=== PATIENT | female | born 1990 | race American Indian/Alaskan Native ===

== ENCOUNTER 2019-12-02 16:29 | Emergency (ER) | payer SELFPAY ==
[2019-12-02 16:43] VITALS: BP 118/76
--- NOTE | 2019-12-02 18:34 | Event Note ---
ED Screening Note Date of service: 12/02/19 Time: 18:32 ED Screening Note: 29-year-old female presents with continuous intermittent nausea vomiting x2 days patient states that she has lots of alcohol on Saturday symptoms began the next day This initial assessment/diagnostic orders/clinical plan/treatment(s) is/are subject to change based on patients health status, clinical progression and re- assessment by fellow clinical providers in the ED. Further treatment and workup at subsequent clinical providers discretion. Patient/guardian urged not to elope from the ED as their condition may be serious if not clinically assessed and managed. Initial orders include: Labs ordered
[2019-12-02 19:14] LABS: Basophils # (Auto) 0.1 K/mm3 (0.0-0.1); Basophils % (Auto) 0.8 % (0.0-1.8); Eosinophils % (Auto) 0.1 % (0.0-4.3); Hematocrit 41.6 % (30.3-42.9); Lymphocytes # (Auto) 1.7 K/mm3 (1.2-5.4); Lymphocytes % (Auto) 23.4 % (13.4-35.0); Mean Corpuscular HGB Conc 34 % (30-34); Mean Corpuscular Volume 83 fl (79-97); Monocytes # (Auto) 0.5 K/mm3 (0.0-0.8); Monocytes % (Auto) 6.5 % (0.0-7.3); Platelet Count 283 K/mm3 (140-440); Red Blood Count 5.01 M/mm3 (3.65-5.03); Red Cell Distribution Width 13.7 % (13.2-15.2)
[2019-12-02 19:17] LABS: Alanine Aminotransferase 15 units/L (7-56); Albumin 4.3 g/dL (3.9-5); Blood Urea Nitrogen 9 mg/dL (7-17); Calcium 9.8 mg/dL (8.4-10.2); Hemolysis Index 15
[2019-12-02 19:21] LABS: BUN/Creatinine Ratio 13
[2019-12-02] MEDS ORDERED: DICYCLOMINE 20 MG TAB PO ONE (19:43)
[2019-12-02] MEDS ORDERED: ONDANSETRON 4 MG/2 ML INJ IV ONE (19:43)
[2019-12-02] MEDS ORDERED: FAMOTIDINE 20 MG/2 ML INJ IV ONE (19:43)
[2019-12-02] MEDS ORDERED: SODIUM CHLORIDE 0.9% 1000 ML 1,000 ML IV ONE (19:43)
[2019-12-02 20:02] LABS: Bacteria,Urine 1+ /HPF (Negative); Bilirubin,Urine NEG (Negative); Blood,Urine NEG (Negative); Color,Urine Yellow (Yellow); Mucus,Urine FEW /HPF; Protein,Urine <15 mg/dL mg/dL (Negative); Urobilinogen,Urine < 2.0 mg/dL (<2.0)
--- NOTE | 2019-12-02 23:01 | Emergency Department Report ---
ED N/V/D HPI - General Chief complaint: Nausea/Vomiting/Diarrhea Stated complaint: PANIC ATTACK Source: patient Mode of arrival: Ambulatory Limitations: No Limitations - History of Present Illness Initial comments: Patient is a nulliparous 29-year-old -[place] female with no past medical history and who presents to the ED with complaint of acute onset persistent intractable nausea and vomiting with epigastric pain for the last 2 days after heavy alcohol abuse and smoking marijuana. Patient states that she has had in the family and 2 days ago with the burial of her grandmother who had a week ago, and as a result she became stressed out and decided to drink heavy alcohol with her family members. Patient states that she was heavily intoxicated and thereafter started having intractable nausea and vomiting which has been persistent for the last 2 days intermittently. Patient states that she has not been able to keep anything down because of nausea and vomiting. Patient denies dizziness, syncope, chest pain, shortness of breath, diarrhea, dysuria, urinary frequency and urgency, fever, chills, cough, sore throat, headache, back pain, vaginal bleeding, vaginal discharge or cough. MD complaint: nausea, vomiting, abdominal pain -: Sudden, days(s) (2) Description of Vomiting: food contents, watery Associated Abdominal Pain: Yes (epigastric pain) Location: epigastric Radiation: none Severity: moderate Pain Scale: 5 Quality: cramping, aching Consistency: constant Improves with: none Worsens with: vomiting Context: possible food poisoning, alcohol abuse Associated Symptoms: denies other symptoms. denies: myalgias, chest pain, cough, diaphoresis, fever/chills, headaches, loss of appetite, malaise, nausea/vomiting, shortness of breath, syncope, other - Related Data Previous Rx's Medication Instructions Recorded Last Taken Type Dicyclomine [Bentyl] 20 mg PO Q6H PRN #30 tablet 12/02/19 Unknown Rx Famotidine [Pepcid] 20 mg PO Q12H #30 tablet 12/02/19 Unknown Rx Ondansetron [Zofran Odt] 4 mg PO Q6HR PRN #20 tab.rapdis 12/02/19 Unknown Rx Allergies Allergy/AdvReac Type Severity Reaction Status Date / Time No Known Allergies Allergy Unverified 12/02/19 16:41 ED Review of Systems ROS: Stated complaint: PANIC ATTACK Other details as noted in HPI Constitutional: denies: chills, fever Eyes: denies: eye pain, eye discharge, vision change ENT: denies: ear pain, throat pain Respiratory: denies: cough, shortness of breath, wheezing Cardiovascular: denies: chest pain, palpitations Endocrine: no symptoms reported Gastrointestinal: abdominal pain, nausea, vomiting. denies: diarrhea Genitourinary: denies: urgency, dysuria, discharge Musculoskeletal: denies: back pain, joint swelling, arthralgia Skin: denies: rash, lesions Neurological: denies: headache, weakness, paresthesias Psychiatric: denies: anxiety, depression Hematological/Lymphatic: denies: easy bleeding, easy bruising ED Past Medical Hx - Past Medical History Previous Medical History?: No - Surgical History Past Surgical History?: No - Social History Smoking Status: Never Smoker Substance Use Type: None - Medications Home Medications: Home Medications Medication Instructions Recorded Confirmed Last Taken Type Dicyclomine [Bentyl] 20 mg PO Q6H PRN #30 tablet 12/02/19 Unknown Rx Famotidine [Pepcid] 20 mg PO Q12H #30 tablet 12/02/19 Unknown Rx Ondansetron [Zofran Odt] 4 mg PO Q6HR PRN #20 tab.rapdis 12/02/19 Unknown Rx ED Physical Exam - General Limitations: No Limitations General appearance: alert, in no apparent distress - Head Head exam: Present: atraumatic, normocephalic, normal inspection - Eye Eye exam: Present: normal appearance, PERRL, EOMI Pupils: Present: normal accommodation - ENT ENT exam: Present: normal exam, normal orophraynx, mucous membranes moist, TM's normal bilaterally, normal external ear exam - Neck Neck exam: Present: normal inspection, full ROM - Respiratory Respiratory exam: Present: normal lung sounds bilaterally. Absent: respiratory distress, wheezes, rales, stridor, chest wall tenderness, accessory muscle use, prolonged expiratory - Cardiovascular Cardiovascular Exam: Present: regular rate, normal rhythm, normal heart sounds. Absent: systolic murmur, diastolic murmur, rubs, gallop - GI/Abdominal GI/Abdominal exam: Present: soft, tenderness (Palpable mild epigastric tenderness), normal bowel sounds. Absent: guarding, rebound, hyperactive bowel sounds, hypoactive bowel sounds, organomegaly, mass - Extremities Exam Extremities exam: Present: normal inspection, full ROM, normal capillary refill - Back Exam Back exam: Present: normal inspection, full ROM. Absent: tenderness, CVA tenderness (R), muscle spasm, paraspinal tenderness, vertebral tenderness - Neurological Exam Neurological exam: Present: alert, oriented X3, CN II-XII intact, normal gait, reflexes normal - Psychiatric Psychiatric exam: Present: normal affect, normal mood - Skin Skin exam: Present: warm, dry, intact, normal color. Absent: rash ED Course Vital Signs 12/02/19 12/02/19 16:42 18:32 Temperature 98.0 F 98 F Pulse Rate 65 65 Respiratory 22 18 Rate Blood Pressure 118/76 Blood Pressure 118/76 [Right] O2 Sat by Pulse 100 100 Oximetry ED Medical Decision Making - Lab Data Result diagrams: 12/02/19 18:41 12/02/19 18:41 - Medical Decision Making This is a nulliparous 29-year-old -[place] female with no past medical history and who presents to the ED with complaint of acute onset persistent intractable nausea and vomiting with epigastric pain for the last 2 days after heavy alcohol abuse and smoking marijuana. Patient states that she has had in the family and 2 days ago with the burial of her grandmother who had di ed a week ago, and as a result she became stressed out and decided to drink heavy alcohol with her family members. Patient states that she was heavily intoxicated and thereafter started having intractable nausea and vomiting which has been persistent for the last 2 days intermittently. Patient states that she has not been able to keep anything down because of nausea and vomiting. In the ED, patient is alert and oriented x3 and is not in distress. Patient was treated in the ED for nausea and vomiting, also given pain medications and antacids. Lab test results were reviewed and are all nonactionable including urinalysis. On reevaluation, patient nausea and vomiting resolved, patient epig astric pain also resolved. Patient was able to keep oral fluids in the ED with no nausea or vomiting. Patient was discharged home on medications including antacids, antiemetics and pain medication and was advised to follow-up with her primary care physician in 5 to 7 days for reevaluation. Patient was otherwise advised to maintain a clear liquid diet for 12 to 24 hours prior to resuming her normal meals. Patient was otherwise advised return to the ED immediately if symptoms get worse. - Differential Diagnosis GERD; Gastritis; Gastroenteritis; Gallstones Critical care attestation.: If time is entered above; I have spent that time in minutes in the direct care of this critically ill patient, excluding procedure time. ED Disposition Clinical Impression: Acute alcoholic gastritis without hemorrhage, Nausea and vomiting in adult patient, GERD without esophagitis Disposition: TO HOME OR SELFCARE Is pt being admited?: No Does the pt Need Aspirin: No Condition: Stable Instructions: Gastroesophageal Reflux Disease (ED), Gastritis (ED), Acute Nausea and Vomiting (ED) Additional Instructions: Maintain a clear liquid diet for 12 to 24 hours, take medication as advised and follow-up with your primary care physician in 5 to 7 days for reevaluation. Return to the ED immediately if symptoms get worse. Prescriptions: Dicyclomine [Bentyl] 20 mg PO Q6H PRN #30 tablet PRN Reason: Abdominal pain Famotidine [Pepcid] 20 mg PO Q12H #30 tablet Ondansetron [Zofran Odt] 4 mg PO Q6HR PRN #20 tab.rapdis PRN Reason: Nausea Referrals: [facility] [Provider Group] - 3-5 Days Time of Disposition: 23:03 Print Language: PORTUGUESE
== END 2019-12-02 23:20 | disposition home or self-care (01) ==
LOC: ED 16:29
DX: K29.20 Alcoholic gastritis without bleeding (principal); K21.9 Gastro-esophageal reflux disease without esophagitis; R11.2 Nausea with vomiting, unspecified; Z79.899 Other long term (current) drug therapy
CPT/HCPCS: 36415; 80053; 81001; 82150; 83690; 84703; 85025; 87086; 96361; 96374; 96375; 99283; J2405; J7030